=== PATIENT | female | born 1960 | race Caucasian/White ===

== ENCOUNTER 2019-12-15 22:26 | Emergency (ER) | payer OTHER ==
[~2019-12-15] VITALS: Ht 170.2 cm; Wt 86.2 kg
[~2019-12-15 22:26] MED LIST: MULT473L PO
--- NOTE | 2019-12-15 22:48 | NUR ---
PT AAOX4. BIBSELF C/O GOT BIT BY HER DOG AFTER THE DOG HAD SURGERY. PT WAS SEEN AND GIVEN SUTURES ON R HAND FOR PRIOR BITE. TDAP UPDATED. AT BEDSIDE FOR EVLA.
--- NOTE | 2019-12-15 22:59 | NUR ---
EMT AT BEDSIDE FOR WOUND CARE
[2019-12-15 23:22] VITALS: BP 137/80
--- NOTE | 2019-12-15 23:22 | NUR ---
Patient discharged to home in stable condition. Written and verbal after care instructions given. Patient verbalizes understanding of instruction.
== END 2019-12-15 23:22 | disposition home or self-care (01) ==
LOC: ER 22:27
DX: S61.411A Laceration without foreign body of right hand, initial encounter (principal); Z79.899 Other long term (current) drug therapy; W54.0XXA Bitten by dog, initial encounter; Y93.89 Activity, other specified; Y92.89 Other specified places as the place of occurrence of the external cause; Y99.8 Other external cause status